=== PATIENT | female | born 1985 | race African-American/Black ===

== ENCOUNTER 2019-09-25 11:15 | Inpatient (IN) | payer OTHER ==
[~2019-09-25 11:15] MED LIST: CITRIC ACID/SODIUM CITRATE 30 ML UNIT-DOSE CUP PO ONE; ELECTROLYTE-148 SOLN 1,000 ML IV ONE
[2019-09-25] MEDS ORDERED: ONDANSETRON 4 MG/2 ML VIAL IVPUSH PRN (12:08)
[2019-09-25] MEDS ORDERED: ELECTROLYTE-148 SOLN 1,000 ML IV SCH (12:15)
[2019-09-25 12:21] VITALS: BMI 37.6
[2019-09-25] MEDS ORDERED: KETOROLAC TROMETHAMINE 30 MG/1 ML VIAL ONE (12:21)
[2019-09-25] MEDS ORDERED: DEXAMETHASONE SOD PHOSPHATE 4 MG/1 ML VIAL ONE (12:21)
[2019-09-25] MEDS ORDERED: PHENYLEPHRINE HCL 10 MG/1 ML SINGLE DOSE VIAL ONE ×2 (12:23→19:00)
[2019-09-25] MEDS ORDERED: ceFAZolin SODIUM 1 GM VIAL ONE (12:35)
[2019-09-25] MEDS ORDERED: SODIUM CHLORIDE 0.9% P/F 10 ML VIAL IJ ONE (12:35)
[2019-09-25] MEDS ORDERED: OXYTOCIN 20 UNITS in 0.9% NS 20 UNIT/1,000 ML INFUS.BAG IV ONE ×2 (13:00→15:28)
[2019-09-25] MEDS ORDERED: IBUPROFEN 800 MG/8 ML IJ IVPB PRN ×2 (15:03→15:53)
[2019-09-25] MEDS ORDERED: ACETAMINOPHEN 1000 MG/100 ML VIAL (NON FORMULARY) IVPB PRN (15:03)
[2019-09-25] MEDS ORDERED: IBUPROFEN 600 MG TABLET (FP) PO PRN (15:53)
[2019-09-25] MEDS ORDERED: METHYLERGONOVINE MALEATE 0.2 MG/1 ML AMP IM PRN (15:53)
[2019-09-25] MEDS ORDERED: oxyCODONE HCL 5 MG TABLET PO PRN (15:53)
[2019-09-25] MEDS ORDERED: OXYTOCIN 20 UNITS in 0.9% NS 20 UNIT/1,000 ML INFUS.BAG IV SCH (16:00)
--- NOTE | 2019-09-25 16:05 | HP ---
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: Alzheimer's, CVA, Dementia, Migraine, Multiple Sclerosis, Peripheral Neuropathy, Parkinson's, Seizure, Syncope, TIA, Vertigo, Other Cardiovascular: No: AFIB, Aneurysm, Aortic Insufficiency, Aortic Stenosis, CAD, CHF, Deep Vein Thrombosis, HTN, Hyperlipdemia, ND, Mitral Insufficiency, Mitral Stenosis, Murmur, Pulmonary Hypertension, Other Pulmonary: No: Asthma, Bronchitis, Cancer, COPD, O2 Dependent, Pneumonia, Previously Intubated, Pulmonary Embolus, Pulmonary Fibrosis, Sleep Apnea, Other Gastrointestinal: No: Ascites, Cancer, Constipation, Crohn's Disease, Diverticulitis, Diverticulosis, Esophageal Varices, Gastritis, GERD, GI Bleed, Hemorrhoids, Hiatal Hernia, Inflamatory Bowel Disease, Irritable Bowel Disease, Pancreatitis, Peptic Ulcer Disease, Ulcerative Colitis, Other Hepatobiliary: No: Cirrhosis, Cholelithiasis, Cholecystitis, Choledocholithiasis , Hepatitis A, Hepatitis B, Hepatitis C, Other Renal/: No: Renal Failure, Renal Inusuff, BPH, Cancer, Hematuria, Hemodialysis , Neurogenic Bladder, Renal Calculi, UTI, Other ...: 5 ...Para: 2 ...Term: 2 ...: 0 ...Spon : 0 ...Induced : 2 ...Multiple Gestation: 0 ...LMP: 12/31/18 ... Weeks Gestation by Dates: 38.2 ...EDC by Dates: 10/07/19 ...EDC by Sono: 10/06/19 Heme/Onc: No: Anemia, B12 Deficiency, Bleeding Disorder, Cancer, Current Chemotherapy, Current Radiation Therapy, Hemochromatosis, Hypercoaguable State, Myeloproliferative Synd, Sickle Cell Disease, Sickle Cell Trait, Thrombocytopenia, Other Infectious Disease: No: AIDS, C-Diff, Herpes Zoster, HIV, MRSA, STD's, Tuberculosis, VREF, Other Psych: No: Addictions, Anxiety, Bipolar, Depression, Panic, Psychosis, Schizophrenia, Other Musculoskeletal: No: Bursitis, Chronic low back pain, Hemiparesis, Hemiplegia, Osteoarthritis, Paraplegia, Other Rheumatology: No: Fibromyalgia, Gout, Lupus, Rheumatoid Arthritis, Sarcoidosis, Vasculitis, Other ENT: No: Allergic Rhinitis, Sinusitis, Other Endocrine: Yes: Hypothyroidism Dermatology: No: Basal Cell, Cellulitis, Eczema, Melanoma, Psoriasis, Squamous Cell, Other - Past Surgical History Past Surgical History: Yes: Hx Myomectomy: No Hx Transabdominal Cerclage: No - Advance Directives Advance Directives: Yes: Living Will - Smoking History Smoking history: Never smoked Have you smoked in the past 12 months: No - Alcohol/Substance Use Hx Alcohol Use: No History of Substance Use: reports: None - Social History Usual Living Arrangement: Yes: With Significant Other Do you think of yourself as: Straight/Heterosexual ADL: Independent History of Recent Travel: No Home Medications - Allergies Allergies/Adverse Reactions: Allergies Allergy/AdvReac Type Severity Reaction Status Date / Time No Known Allergies Allergy Verified 09/25/19 11:32 - Home Medications Home Medications: Ambulatory Orders Labetalol HCl [Normodyne -] 400 mg PO DAILY 09/25/19 Levothyroxine [Synthroid -] 50 mcg PO DAILY 09/25/19 Vits96/Iron Fum/Folic [ Tablet] 1 each PO DAILY 09/25/19 Family Medical History Family History: Denies Review of Systems - Review of Systems Constitutional: reports: No Symptoms Eyes: reports: No Symptoms HENT: reports: No Symptoms Neck: reports: No Symptoms Cardiovascular: reports: No Symptoms Respiratory: reports: No Symptoms Gastrointestinal: reports: No Symptoms Genitourinary: reports: No Symptoms Breasts: reports: No Symptoms Reported Musculoskeletal: reports: No Symptoms Integumentary: reports: No Symptoms Neurological: reports: No Symptoms Endocrine: reports: No Symptoms Hematology/Lymphatic: reports: No Symptoms Psychiatric: reports: No Symptoms Physical Exam - Maternity Vital Signs: Vital Signs Temperature 97.8 F 09/25/19 15:20 Pulse Rate 83 09/25/19 15:20 Respiratory Rate 18 09/25/19 15:20 Blood Pressure 112/97 09/25/19 15:20 O2 Sat by Pulse Oximetry (%) 99 09/25/19 15:20 Constitutional: Yes: Well Nourished, No Distress, Calm Eyes: Yes: WNL, Conjunctiva Clear, EOM Intact HENT: Yes: WNL, Atraumatic Neck: Yes: WNL, Supple, Trachea Midline Cardiovascular: Yes: WNL, Regular Rate and Rhythm Lungs: Clear to auscultation Breast(s): Yes: WNL - Abdominal Exam/OB Fundal Height: 42 Number of Fetuses: Single Presentation: Vertex Contractions: Yes Regularity: Irregular Intensity: Mild Monitor Mode: External Heart Rate Location: [facility] Category: I Accelerations: Uniform Decelerations: None - Vaginal Exam/OB Vaginal Bleediing: No Speculum Exam: No Dilatation (cm): 1 Effacement (%): 10 Amniotic Membrane Status: Intact Presentation: Vertex/Position Station: -3 - Physical Exam Musculoskeletal: Yes: WNL Extremities: Yes: WNL Edema: Yes Edema: LUE: 1+, RUE: 1+, LLE: 1+, RLE: 1+ Integumentary: Yes: WNL Deep Tendon Reflex Grade: Normal +2 ...Motor Strength: WNL Psychiatric: Yes: WNL, Alert, Oriented Assessment/Plan for repeat lt c s
--- NOTE | 2019-09-25 16:09 | OP ---
Operative Note - Note: Operative Date: 09/25/19 Pre-Operative Diagnosis: repeat lt c s x3 Operation: repeat lt c s x 3 Findings: facia dense Post-Operative Diagnosis: Same as Pre-op Surgeon: Delfino Hernandez Anesthesia: Spinal Estimated Blood Loss (mls): 800 (difficult to get into peritonium, dense scarred facia, no intraabdominal adhesions, duet to bmi, difficult c section ) Operative Report Dictated: Yes
[2019-09-25] MEDS ORDERED: NIFEdipine E.R. 30 MG TABLET (FP) PO STA (16:21)
--- NOTE | 2019-09-25 16:34 | SURG ---
Surgery Director Process Note Director Process: Matt Tolbert PA-C Date of Service: 09/25/19 Diagnosis: Repeat Procedure: Cesarian section I was present for the entirety of the operative procedure. For further detail, please refer to operative report. Visit type - Case Type Case Type: Scheduled - Emergency Emergency Visit: No - New patient This patient is new to me today: Yes Date on this admission: 09/25/19 - Critical Care Critical Care patient: No
[2019-09-25] MEDS ORDERED: NIFEdipine E.R. 30 MG TABLET (FP) PO ONE (16:45)
--- NOTE | 2019-09-25 17:00 | OP ---
DATE OF OPERATION: 09/25/2019 PREOPERATIVE DIAGNOSES: 1. Repeat low transverse section x3. Thin scar tissue of fascia. 2. Chronic high blood pressure on labetalol. 3. Hypothyroidism. POSTOPERATIVE DIAGNOSIS: Repeat low transverse section x3. Thin scar tissue of fascia. PROCEDURE: Repeat low transverse section x3. SURGEON: Delfino Hernandez MD COMMERCIAL COLLECTIONS SPECIALIST: Matt Tolbert PA-C ANESTHESIOLOGIST: Krupa Flores MD ANESTHESIA: Spinal. INDICATION: [id number] female patient, currently 38 weeks and 2 days , history of chronic high blood pressure on labetalol and history of hypothyroidism on Synthroid. Currently 38 weeks and a half. Is taken to OR for repeat low transverse section. DESCRIPTION OF PROCEDURE: Patient was placed on operating table in supine position after the spinal anesthesia was obtained. Patient's abdomen and pelvis was prepped and draped in the usual sterile manner. Pfannenstiel incision was made through skin and subcutaneous tissue until the fascia was nicked in the midline. Fascia was very tough, very densely adhesed and very . A lot of scar tissue on the fascia. Fascia was cut through with the Bovie with good hemostasis, then the peritoneum was entered. No adhesion was encountered intraabdominally. Bladder flap was not able to be created. Then the uterus was entered. Baby was delivered from OP presentation. Baby was handed over to harness placer after umbilical cord doubly clamped and cut. . Placenta was removed. Uterus was closed in single layer, first with interlocking Vicryl sutures. Good hemostasis. Both gutters were cleaned. Both ovaries, fallopian tubes, uterus were within normal limits. Polycystic-looking ovary was seen. Both tubes were normal. No fibroid was seen. No complications. Then peritoneum was closed from the right to the left instead of up to down. Then the fascia was closed and the subcutaneous tissue was closed, skin was closed with subcuticular sutures. Good hemostasis, draining clear urine. Blood loss about 800 mL. Transferred to recovery room in stable condition. It was a difficult due to the patient's BMI was large and also the scar tissue of the fascia was very dense, so it was difficult to go through the fascia. Patient had pedunculated fatty abdominal tissue so it prevented us from getting to the operating field, so it was difficult surgery and would recommend tubal ligation in the future. MD ALISIA CANO/[id number]
[2019-09-25] MEDS ORDERED: ROCURONIUM BROMIDE 50 MG/5 ML SYRINGE ONE (19:00)
[2019-09-25] MEDS: LABETALOL HCL 200 MG TABLET (FP) PO SCH (22:05)
[2019-09-26] MEDS: LEVOTHYROXINE NA 50 MCG TABLET (FP) PO ONE ×2 (06:19→08:26)
[2019-09-26 07:59] LABS: BASO % 0.3 % (0-2.0); EOS % 0.1 % (0-4.5); HEMATOCRIT 26.3 % (32.4-45.2); HEMOGLOBIN 8.7 GM/dL (10.7-15.3); LYMPH % 13.9 % (8-40); MCH 27.8 pg (25.7-33.7); MEAN CELL VOLUME 84.3 fl (80-96); MEAN PLT VOLUME 9.7 fl (7.5-11.1); MONO % 8.2 % (3.8-10.2); NEUT % 77.5 % (42.8-82.8); PLATELET COUNT 221 K/MM3 (134-434); RBC 3.12 M/mm3 (3.60-5.2); RDW 14.8 % (11.6-15.6); WHITE BLOOD COUNT 12.6 K/mm3 (4.0-10.0)
[2019-09-26] MEDS: LABETALOL HCL 200 MG TABLET (FP) PO SCH ×2 (09:42→21:43)
[2019-09-26] MEDS: ENOXAPARIN NA (PORCINE) 40 MG/0.4 ML DISP.SYRIN SQ SCH (09:42)
--- NOTE | 2019-09-26 12:09 | PN ---
Progress Note (short form) - Note Progress Note: 34F s/p repeat C/S under Duramorph spinal. No new c/o. Vital Signs Temp 98.3 F 09/26/19 07:15 Pulse 88 09/26/19 07:15 Resp 20 09/26/19 11:00 BP 132/72 09/26/19 07:15 Pulse Ox 99 09/25/19 16:50 Intake & Output 09/25/19 09/26/19 09/26/19 23:59 11:59 23:59 Intake Total 3300 1000 Output Total 1000 600 Balance 2300 400 Intake: IV 3300 1000 NORMAL SALINE+20 UNITS 1300 1000 OXYTOCIN - 20 unit In 1, 000 ml @ 125 mls/hr IV ASDIR ISSA Rx#:[id number] Plasma-Lyte 148 - 1,000 1000 ml @ 1000 mls/hr IV ONCE ONE Rx#:[id number] Plasma-Lyte 148 - 1,000 500 ml @ 125 mls/hr IV ASDIR ISSA Rx#:[id number] plasmalyte 148 - 500cc 500 with pitocin 20 units Output: Urine 1000 600 Ascencio 1000 600 Other: Voiding Method Indwelling Catheter Toilet Weight 7 lb 3 oz Length 19 in - no anesthetic complications - MILLER, spinal resolved
--- NOTE | 2019-09-26 13:06 | PN ---
Post Progress Note Post Day: 1 Type of Delivery: Repeat C/S Vital Signs: Vital Signs Temperature 98.3 F 09/26/19 07:15 Pulse Rate 88 09/26/19 07:15 Respiratory Rate 20 09/26/19 11:00 Blood Pressure 132/72 09/26/19 07:15 O2 Sat by Pulse Oximetry (%) 99 09/25/19 16:50 Breast Exam: Yes: Soft Uterus: Yes: Fundus Firm, Fundus below umbilicus Incision: Yes: Dressing dry and intact, Sutures intact Abdomen/GI: Yes: Abdomen soft, Passing flatus, Tolerating PO Lochia: Yes: Serosa Lochia, amount: Small Extremities: Yes: Calves non-tender Perineum: Yes: Intact Activity: Ambulating - Labs Labs: CBC WBC 12.6 K/mm3 (4.0-10.0) H 09/26/19 06:52 RBC 3.12 M/mm3 (3.60-5.2) L 09/26/19 06:52 Hgb 8.7 GM/dL (10.7-15.3) L 09/26/19 06:52 Hct 26.3 % (32.4-45.2) L D 09/26/19 06:52 MCV 84.3 fl (80-96) 09/26/19 06:52 MCH 27.8 pg (25.7-33.7) 09/26/19 06:52 MCHC 33.0 g/dl (32.0-36.0) 09/26/19 06:52 RDW 14.8 % (11.6-15.6) 09/26/19 06:52 Plt Count 221 K/MM3 (134-434) 09/26/19 06:52 MPV 9.7 fl (7.5-11.1) 09/26/19 06:52 Absolute Neuts (auto) 9.8 K/mm3 (1.5-8.0) H 09/26/19 06:52 Neutrophils % 77.5 % (42.8-82.8) 09/26/19 06:52 Lymphocytes % 13.9 % (8-40) 09/26/19 06:52 Monocytes % 8.2 % (3.8-10.2) 09/26/19 06:52 Eosinophils % 0.1 % (0-4.5) 09/26/19 06:52 Basophils % 0.3 % (0-2.0) 09/26/19 06:52 Nucleated RBC % 0 % (0-0) 09/26/19 06:52 Assessment/Plan anemia, will start iron
[2019-09-26] MEDS: SIMETHICONE 80 MG TAB.CHEW (FP) PO PRN ×2 (14:25→21:43)
[2019-09-26] MEDS ORDERED: BISACODYL 10 MG SUPP.RECT RC PRN (15:53)
[2019-09-26] MEDS: FERROUS SO4 325 MG TABLET (FP) PO SCH (18:39)
[2019-09-26] MEDS: SENNOSIDES/DOCUSATE COMBO (SENNA PLUS) TABLET (UD) PO PRN (21:43)
[2019-09-26] MEDS: ACETAMINOPHEN 325 MG TABLET (FP) PO PRN (21:44)
[2019-09-27] MEDS: LEVOTHYROXINE NA 50 MCG TABLET (FP) PO SCH (08:29)
[2019-09-27] MEDS: FERROUS SO4 325 MG TABLET (FP) PO SCH ×2 (09:06→17:39)
[2019-09-27] MEDS: LABETALOL HCL 200 MG TABLET (FP) PO SCH ×2 (10:00→21:01)
[2019-09-27] MEDS: ENOXAPARIN NA (PORCINE) 40 MG/0.4 ML DISP.SYRIN SQ SCH (10:00)
[2019-09-27] MEDS: SIMETHICONE 80 MG TAB.CHEW (FP) PO PRN ×2 (10:01→21:01)
[2019-09-27] MEDS: ACETAMINOPHEN 325 MG TABLET (FP) PO PRN (21:02)
[2019-09-27] MEDS: oxyCODONE HCL 5 MG TABLET PO PRN (21:02)
[2019-09-27] MEDS: SENNOSIDES/DOCUSATE COMBO (SENNA PLUS) TABLET (UD) PO PRN (21:04)
--- NOTE | 2019-09-28 04:49 | PN ---
Post Progress Note Post Day: 3 Type of Delivery: Repeat C/S Vital Signs: Vital Signs Temperature 99 F 09/27/19 22:00 Pulse Rate 86 09/27/19 22:00 Respiratory Rate 18 09/27/19 22:00 Blood Pressure 141/91 09/27/19 22:00 O2 Sat by Pulse Oximetry (%) 99 09/25/19 16:50 Breast Exam: Yes: Soft Uterus: Yes: Fundus Firm, Fundus below umbilicus Incision: Yes: Dressing dry and intact, Sutures intact Abdomen/GI: Yes: Abdomen soft, Passing flatus, Tolerating PO Lochia: Yes: Serosa Lochia, amount: Small Extremities: Yes: Calves non-tender Perineum: Yes: Intact Activity: Ambulating - Labs Labs: CBC WBC 12.6 K/mm3 (4.0-10.0) H 09/26/19 06:52 RBC 3.12 M/mm3 (3.60-5.2) L 09/26/19 06:52 Hgb 8.7 GM/dL (10.7-15.3) L 09/26/19 06:52 Hct 26.3 % (32.4-45.2) L D 09/26/19 06:52 MCV 84.3 fl (80-96) 09/26/19 06:52 MCH 27.8 pg (25.7-33.7) 09/26/19 06:52 MCHC 33.0 g/dl (32.0-36.0) 09/26/19 06:52 RDW 14.8 % (11.6-15.6) 09/26/19 06:52 Plt Count 221 K/MM3 (134-434) 09/26/19 06:52 MPV 9.7 fl (7.5-11.1) 09/26/19 06:52 Absolute Neuts (auto) 9.8 K/mm3 (1.5-8.0) H 09/26/19 06:52 Neutrophils % 77.5 % (42.8-82.8) 09/26/19 06:52 Lymphocytes % 13.9 % (8-40) 09/26/19 06:52 Monocytes % 8.2 % (3.8-10.2) 09/26/19 06:52 Eosinophils % 0.1 % (0-4.5) 09/26/19 06:52 Basophils % 0.3 % (0-2.0) 09/26/19 06:52 Nucleated RBC % 0 % (0-0) 09/26/19 06:52 Assessment/Plan mahad srivastava dc pt home today
--- NOTE | 2019-09-28 04:53 | DS ---
Physical Exam-[employer] Vital Signs: Vital Signs Temperature 99 F 09/27/19 22:00 Pulse Rate 86 09/27/19 22:00 Respiratory Rate 18 09/27/19 22:00 Blood Pressure 141/91 09/27/19 22:00 O2 Sat by Pulse Oximetry (%) 99 09/25/19 16:50 Constitutional: Yes: Well Nourished, No Distress, Calm Eyes: Yes: WNL, Conjunctiva Clear, EOM Intact HENT: Yes: WNL, Atraumatic, Normocephalic Neck: Yes: WNL, Supple, Trachea Midline Cardiovascular: Yes: WNL, Regular Rate and Rhythm Respiratory: Yes: WNL, Regular, CTA Bilaterally Gastrointestinal: Yes: WNL, Normal Bowel Sounds, Soft ...Rectal Exam: Yes: WNL Renal/: Yes: WNL Pelvis: Yes: WNL External Genitalia: Yes: Normal Internal Exam Deferred: No Vaginal Exam: Yes: Normal Cervix: Yes: Normal Uterus: Yes: Normal Adnexa: Normal: Bilateral ....Post : Yes: Uterus firm, Uterus non-tender Breast(s): Yes: WNL Musculoskeletal: Yes: WNL Extremities: Yes: WNL Edema: Yes Edema: LUE: 1+, RUE: 1+, LLE: 1+, RLE: 1+ Integumentary: Yes: WNL Wound/Incision: Yes: Clean/Dry, Well Approximated Neurological: Yes: WNL, Alert, Oriented ...Motor Strength: WNL Psychiatric: Yes: WNL, Alert, Oriented Labs: CBC, BMP 09/26/19 06:52 Delivery - Delivery Section: Repeat Type of Anesthesia: Spinal Episiotomy/Laceration: None EBL (cc): 800 Delivery, Single - Stages of Labor Date of Delivery: 09/25/19 Time of Delivery: 13:55 Time Placenta Delivered: 13:56 - Condition of Disability Examiner/Electromechanical Engineer Present: Yes Name: Radha Bustillo Infant Gender: Female Weight: 3.26 kg Position: OT Total Hours ROM (Hrs/Mins): 0/2 - 1 Minute Total Score: 9 5 Minutes Total Score: 9 - Feeding Plan Initial Plan: Elected not to breastfeed exclusively throughout hospitalization Discharge Summary Problems reviewed: Yes Reason For Visit: REPEAT Procedures: Principal: repeat lt c s Other Procedures: none Hospital Course: uneventful Health Concerns: chronic htn, hypothyroid Plan of Treatment: oob as possible Goals: return to work in 8 weeks Condition: Good - Instructions Diet, Activity, Other Instructions: regular , routine post care Disposition: HOME - Home Medications Comprehensive Discharge Medication List: Ambulatory Orders Labetalol HCl [Normodyne -] 200 mg PO BID 09/25/19 Levothyroxine [Synthroid -] 50 mcg PO DAILY 09/25/19 Vits96/Iron Fum/Folic [ Tablet] 1 each PO DAILY 09/25/19 Prescription Drug Monitoring Program (I-STOP) results: I-STOP reviewed and no issues identified
[2019-09-28] MEDS: oxyCODONE HCL 5 MG TABLET PO PRN (05:10)
[2019-09-28] MEDS: SIMETHICONE 80 MG TAB.CHEW (FP) PO PRN (05:10)
[2019-09-28] MEDS: ACETAMINOPHEN 325 MG TABLET (FP) PO PRN (05:11)
[2019-09-28] MEDS: LEVOTHYROXINE NA 50 MCG TABLET (FP) PO SCH (06:13)
[2019-09-28] MEDS: FERROUS SO4 325 MG TABLET (FP) PO SCH (08:49)
[2019-09-28] MEDS: ENOXAPARIN NA (PORCINE) 40 MG/0.4 ML DISP.SYRIN SQ SCH (10:51)
[2019-09-28] MEDS: LABETALOL HCL 200 MG TABLET (FP) PO SCH (10:51)
[2019-09-28 12:32] VITALS: BP 132/90; PULSE 77; TEMP 98.3
--- NOTE | 2019-09-30 16:01 | PATH ---
Surgical Pathology Report Patient Name: DWIGHT NICHOLS Med. Rec. #: [id number] /Age/Gender: 1985 (Age: 34) / F Account: [id number] Location: [facility] C[facility] Taken: 09/25/2019 Received: 09/28/2019 Reported: 09/30/2019 Physicians: Delfino Hernandez MD Specimen(s) Received PLACENTA Clinical History , 38.3 weeks, chronic hypertension, hypothyroid Final Diagnosis PLACENTA, SECTION: 396 G THIRD TRIMESTER PLACENTA WITH TRIVASCULAR UMBILICAL CORD AND UNREMARKABLE PLACENTAL MEMBRANES. Electronically Signed Claire Castillo M.D. Gross Description The specimen is received fresh labeled placenta and is a 396 gram, 18.0 x 15.5 x 2.5 cm. placenta with attached membranes and umbilical cord. The attached membranes are palma, translucent with focal opacities and insert marginally. The umbilical cord measures 18 cm. in length and averages 1.2 cm in diameter. The cord inserts eccentrically, 5 cm. to the nearest margin. No true knots or strictures are identified. Cut surface of the umbilical cord reveals 3 vessels. The surface is thornton-blue with minimal fibrin deposition and appropriate caliber vessels. The maternal surface is red-brown with focal defects. Sectioning reveals red-brown, spongy parenchyma. No lesions are identified. Parking Worker sections are submitted in three cassettes as follows: 1- membrane rolls and umbilical cord; 2-3- full thickness sections of placenta. 09/29/2019 [facility]09/29/2019
== END 2019-09-28 11:15 | disposition home or self-care (01) | DRG 540 ==
LOC: JLDR 11:15 → J3W 17:00
PROVIDERS: ADMIT Obstetrics & Gynecology; ATTEND Obstetrics & Gynecology
PROC: 10D00Z1 Extraction of Products of Conception, Low, Open Approach (ICD-10-PCS; principal; 2019-09-25)
DX: O99.284 Endocrine, nutritional and metabolic diseases complicating childbirth (principal); O16.4 Unspecified maternal hypertension, complicating childbirth; Z3A.38 38 weeks gestation of pregnancy; Z37.0 Single live birth
CPT/HCPCS: 36415; 85025; 88307-TC